=== PATIENT | female | born 1940 | race Caucasian/White ===

== ENCOUNTER 2019-10-07 09:06 | Outpatient (RCR) | payer MEDICARE, SELFPAY ==
--- NOTE | 2019-10-07 11:22 | PTOPEVAL ---
PHYSICAL THERAPY EVALUATION AND PLAN OF CARE 10-07-2019 Juju received a PT evaluation today for the diagnosis of B LE lymphedema. Treatment is scheduled 3x/wk for 6 weeks. Thank you for referring Mrs. Galicia to [facility]. Please review, sign, date and return this plan of care ANNE. I agree with and certify that the following plan of care is medically necessary. Referring Physician Date Attending Provider: Tao Sheffield MD PT Outpatient Evaluation Start: 10/07/19 09:47 Document 10/07/19 09:40 LUIS (Rec: 10/07/19 10:55 LUIS [email or web address]) Outpatient Past Medical History Neurological History Hx Neurological Disorders No Significant History Cardiovascular History Hx Atrial Fibrillation Yes: cardioversion; meds taken off due bleeding Hx Hypertension Yes: med Respiratory History Hx Respiratory Disorders No Significant History Gastrointestinal History Hx Gastrointestinal Disorders No Significant History Genitourinary History Hx Other Genitourinary Disorders Yes: urinary incontinent Musculoskeletal History Hx Arthritis Yes: hands,arms and legs, Hematological History Hx Anemia Yes: history of- not now Endocrine History Hx Diabetes Yes: meds control Hx Hypothyroidism Yes: meds HEENT History Hx HEENT Disorders No Significant History Other History Hx Other Surgeries Yes: appendectomy,gall bladder ,hernia,hysterectomy Evaluation Information Problem Diagnosis B LE lymphedema Onset Apr 2019 Subjective Information has had several falls, then Query Text:As Reported By Patient/ cellulitis L LE; was in [facility] hospital, then SNF and home since end May; no falls since May; Prior Level of Function Activity Level (Last 3 Months) Occupation retired Home Setting Home Type House Environmental Barriers Stairs, Threshold Living Situation With Adult Child Support Available Local Family Support Mobility Assistive Devices (Used Last 3 Walker, Wheeled,Wheelchair, Months) Manual Comments Additional Prior Level of Function use wheeled walker in home, w/ Comments c for community; live with daughter; daughter assist with meals, cooking, cleaning, shopping; daughter stands by for safety with showering, dressing; multiple falls, legs give out; goes to foot dr for toe nail trims;
--- NOTE | 2019-11-08 14:42 | PCPTNOTE ---
PHYSICAL THERAPY DISCHARGE 11-07-2019 Attending Provider: Tao Sheffield MD Patient:Juju Galicia Date of :1940 Mrs. Galicia has not returned for any further treatments since the initial evaluation on 10/07/2019, therefore she will be discharged at this time. The goals were not met. Thank you for referring Juju to [facility]. Please review, sign, date and return this discharge summary ANNE. I have been updated about the patient's current status and I agree with discharge from the above service at this time. Referring Physician Date
== END 2019-11-09 09:18 | disposition home or self-care (01) ==
LOC: ANHPT 09:06
PROVIDERS: PCP Internal Medicine; Visit Provider Internal Medicine
DX: I89.0 Lymphedema, not elsewhere classified (principal)
CPT/HCPCS: 97161